=== PATIENT | male | born 1980 | race Caucasian/White ===

== ENCOUNTER 2019-06-22 20:48 | Emergency (ER) | payer BC, SELFPAY ==
--- NOTE | ~2019-06-22 | XR_ITS ---
EXAMINATION: XR soft tissue neck DATE: 06/22/2019 21:50 INDICATION: Foreign body sensation at the epiglottis. TECHNIQUE: AP and lateral views of the soft tissues of the neck were obtained. COMPARISON: None. FINDINGS: No foreign bodies identified. Airway appears patent from the nasopharynx through the neck to the [facility]. Epiglottis and prevertebral soft tissues are normal. Mild cervicothoracic levocurvature. Sagitta l alignment is normal. Vertebral body and disc heights are normal. Visualized apices of lungs are micah ar. IMPRESSION: 1. Normal soft tissues of the neck. No evident foreign body. Reviewed, dictated and finalized at location A. R [employer]
[2019-06-22 21:20] VITALS: BP 159/83; PULSE 94; RESP 18; TEMP 37.1; O2SAT 99
--- NOTE | 2019-06-22 21:56 | ED.GENADULT ---
HPI - General Adult General Chief complaint: Skin/Abscess/Foreign Body Stated complaint: POSSIBLE FOOD IN THROAT Time Seen by Provider: 06/22/19 21:32 Source: patient Mode of arrival: ambulatory Limitations: no limitations History of Present Illness HPI narrative: Patient is a 38-year-old male who presents to emergency department for evaluation of sensation of something being stuck in the throat patient notes that the level of his cricoid he feels as though there is something like a peanut or pill stuck has been having this problem off and on for months seen ENT and GI. Patient notes history of reflux. Patient notes that the pain occurs with swallowing. Patient denies URI symptoms. Patient is able to swallow solids and liquids. Patient on arrival in no distress Related Data Home Medications Medication Instructions Recorded Confirmed cetirizine [Zyrtec] 10 mg PO DAILY 06/22/19 fluticasone propionate [Flonase INTRANASAL 06/22/19 Allergy Relief] naltrexone 4.5 mg PO DAILY 06/22/19 omeprazole 06/22/19 testosterone cypionate 200 mg IM MONTHLY 06/22/19 Allergies Allergy/AdvReac Type Severity Reaction Status Date / Time No Known Allergies Allergy Verified 06/22/19 21:23 Review of Systems Review of Systems: Narrative: CONSTITUTIONAL: Denies fever, chills, or sweats. EYES: Denies redness, or discharge. ENT: Denies rhinorrhea, congestion, sore throat, or otalgia. CARDIOVASCULAR: Denies chest pain RESPIRATORY: Denies cough or dyspnea. GASTROINTESTINAL: Denies abdominal pain, nausea, vomiting, or diarrhea. [facility] Surgical History Surgical History (Updated 06/22/19 @ 21:59 by Miguel Weathers PA-C) History of endoscopy Social History Social History (Updated 06/22/19 @ 21:59 by Miguel Weathers PA-C) Smoking status: Never smoker Gender identity (if verbalized by the patient): Male Exam Narrative: Exam Narrative: GENERAL: Well-appearing, well-nourished, and in no acute distress. HEAD: Normocephalic, atraumatic. EYES: PERRLA and EOMI. ENT: Nares clear, no rhinorrhea or epistaxis. Mucous membranes moist. Oropharynx without tonsillar hypertrophy exudate or other lesions. Uvula midline no trismus or drooling NECK: Supple. No adenopathy or masses. CHEST: Clear to auscultation. No respiratory distress. No wheezes rales or rhonchi HEART: Regular rate and rhythm. No murmur heard. EXTREMITIES: Normal range of motion. No edema. SKIN: Warm, dry, no rash. NEURO: No focal deficits. Alert and oriented x3. PSYCH: Normal mood and affect. Course Course Emergency Course: Patient in the room in no distress aware of case findings treatment plan and diagnosis Vital Signs Vital signs: Vital Signs Temperature 98.8 F 06/22/19 21:20 Pulse Rate 94 06/22/19 21:20 Respiratory Rate 18 06/22/19 21:20 Blood Pressure 159/83 H 06/22/19 21:20 Pulse Oximetry 99 06/22/19 21:20 Temperature 98.8 F 06/22/19 21:20 Pulse Rate 94 06/22/19 21:20 Respiratory Rate 18 06/22/19 21:20 Blood Pressure 159/83 H 06/22/19 21:20 Pulse Oximetry 99 06/22/19 21:20 Medical Decision Making Vital Signs Vital Signs: Vital Signs Temperature 98.8 F 06/22/19 21:20 Pulse Rate 94 06/22/19 21:20 Respiratory Rate 18 06/22/19 21:20 Blood Pressure 159/83 H 06/22/19 21:20 Pulse Oximetry 99 06/22/19 21:20 Temperature 98.8 F 06/22/19 21:20 Pulse Rate 94 06/22/19 21:20 Respiratory Rate 18 06/22/19 21:20 Blood Pressure 159/83 H 06/22/19 21:20 Pulse Oximetry 99 06/22/19 21:20 Discharge Plan Discharge Clinical Impression: Dysphagia Patient Disposition: Home, Self-Care Condition: Stable Instructions: Antibiotic Form, Dysphagia (ED) Additional Instructions: Follow up with your primary care provider within 5-7 days. Go to ER for shortness of breath, difficulty breathing, chest pain, fever/chills, weakness, nauseau/vomitting, or unable to swallow or open the m
[2019-06-22 22:00] VITALS: PULSE 66; RESP 15; O2SAT 98
[2019-06-22 22:10] VITALS: BP 128/89; PULSE 78; RESP 15; O2SAT 97
== END 2019-06-22 22:10 | disposition home or self-care (01) ==
PROVIDERS: Emergency Provider Emergency Medicine
DX: R13.10 Dysphagia, unspecified (principal)
CPT/HCPCS: 70360; 99283

== ENCOUNTER 2019-08-01 07:42 | Outpatient (CLI) | payer BC, SELFPAY ==
--- NOTE | 2019-08-01 07:52 | ECHO_ITS ---
Patient Info Name: Angus Ying Age: 38 years : 1980 Gender: Male Ht: 71 in Wt: 160 lbs BSA: 1.91 m2 HR: 83 bpm BP: 128 / 80 mmHg Technical Quality: Good Exam Date: 08/01/2019 8:03 AM Exam Location: [facility] Pulmonary Patient Status: Outpatient Admit Date: 08/01/2019 Staff Ordering Physician: Kellee Myles MD [employer] Consultant: Judi Yusuf RDCS Attending Provider: Kellee Myles MD Referring Physician: Shar ANGULO; Exam Type: CA echo doppler color flow Study Info Indications R06.02 - Shortness of breath Complete two-dimensional, color flow and Doppler transthoracic echocardiogram is performed. Summary 1. Left ventricular chamber dimension is normal. 2. Left ventricular systolic function is normal, estimated at 60-65%. 3. The left ventricular diastolic function is normal. 4. E/e' 5 is not elevated. 5. There is mild mitral valve regurgitation. 6. There is trace tricuspid valve regurgitation. 7. No pulmonary hypertension, estimated pulmonary arterial systolic pressure is 30 mmHg. Left Ventricle E/e' 5 is not elevated. Left ventricular chamber dimension is normal. Left ventricular systolic function is normal, estimated at 60-65%. The left ventricular diastolic function is normal. Right Ventricle Right ventricular chamber dimension is normal. Right ventricular systolic function is normal. Left Atria Left atrial chamber dimension is normal. Right Atria Right atrial chamber dimension is normal. Aortic Valve The aortic valve is trileaflet. There is no aortic valve stenosis. There is no aortic valve regurgitation. Pulmonic Valve There is no pulmonic regurgitation. Mitral Valve There is no mitral valve stenosis. There is mild mitral valve regurgitation. Tricuspid Valve There is trace tricuspid valve regurgitation. No pulmonary hypertension, estimated pulmonary arterial systolic pressure is 30 mmHg. Pericardium/Pleural There is no pericardial effusion. Inferior Vena Cava Normal inferior vena cava with >50% collapse upon inspiration consistent with normal right atrial pressure, 5 mmHg. Aorta The aortic root size at the sinus of Valsalva is normal. Left Ventricular Outflow Tract Name Value Normal LVOT 2D LVOT Diameter 2.1 cm LVOT Doppler LVOT Peak Gradient 5 mmHg LVOT Mean Gradient 3 mmHg LVOT VTI 22 cm LVOT VTI/AV VTI Ratio 0.8 LVOT Stroke Volume 74 ml LVOT CO 6.5 l/min LVOT CI 3.4 l/min/m2 Pulmonic Valve Name Value Normal RVOT Doppler RVOT Peak Gradient 3 mmHg PV Doppler PV Peak G
--- NOTE | 2019-08-01 11:38 | MISC_ITS ---
PFT Report This report was moved to the correct visit, [id number], on August 02, 2019. Original report was signed by Dr. Dickens on August 01, 2019 at 1138. PFT Interpretation PFT Interpretation: This PFT met all criteria for ATS standards and reproducibility FEV/FVC post bronchodilator 91% of predicted FEV1 97% FVC 91% There was great improvement in FEV1 by 21% and 670 ml TLC 94% RV 132% RV/TLC 41% DLCO 125% when adjusted for alveolar volume but not adjusted for hemoglobin Flow volume loops were normal Impression: Over no significant obstruction or restriction but the improvement in post bronchodilator FEV1, air trapping suggests possible underlying reactive airway disease. Clinical correlation is advised. Report Initialized date/time: Lloyd Dickens MD 08/01/19 / 1138 Electronically signed by: Lloyd Dickens MD 08/01/19 1132 [facility]
== END 2019-08-01 07:43 | disposition home or self-care (01) ==
PROVIDERS: Visit Provider Internal Medicine Critical Care Medicine
DX: R06.02 Shortness of breath (principal); I34.0 Nonrheumatic mitral (valve) insufficiency
CPT/HCPCS: 93306; 94060; 94726; 94729; 95012

== ENCOUNTER 2022-08-18 14:27 | Outpatient (CLI) | payer BC, SELFPAY ==
--- NOTE | ~2022-08-18 | CT_ITS ---
EXAMINATION: CT diagnostic chest wo con DATE: 08/18/2022 14:55 INDICATION: Shortness of breath, [place] positive TECHNIQUE: Computed tomography (CT) of the chest was performed without intravenous contrast. The dose -length product (DLP) was 213.19 mGy-cm. Automated exposure control and iterative reconstruction tech nique were employed. COMPARISON: None FINDINGS: The lungs are free of acute opacities. No pleural effusion or pneumothorax. No fibrotic kera nges are identified. There is mild scarring of the lung apices. No pathologically enlarged thoracic l ymph nodes are identified. The heart size is normal. There is mild bilateral gynecomastia. IMPRESSION: 1. No acute cardiopulmonary abnormality or evidence of fibrotic change. Reviewed, dictated and finalized at location B.
== END 2022-08-18 14:28 | disposition home or self-care (01) ==
PROVIDERS: PCP Internal Medicine; Visit Provider Physician Assistant
DX: R06.02 Shortness of breath (principal); J45.909 Unspecified asthma, uncomplicated
CPT/HCPCS: 71250